=== PATIENT | male | born 1995 | race Caucasian/White ===

== ENCOUNTER → 2017-12-22 17:33 | Outpatient (CLI) | payer BC, SELFPAY ==
[2017-12-22 20:03] LABS: Chlamydia Trachomatis by PCR Negative (Negative); Neisserai gonorrhoeae by PCR Negative (Negative); Probe Check PASS; Sample Adequacy Control PASS; Specimen Processing Control PASS
== END ==
PROVIDERS: Visit Provider Physician Assistant
DX: Z72.51 High risk heterosexual behavior (principal)
CPT/HCPCS: 87491; 87591